=== PATIENT | male | born 1945 | race Caucasian/White ===

== ENCOUNTER 2022-03-28 15:19 | Outpatient (REF) | payer MEDICARE, SELFPAY ==
[2022-03-28 16:19] LABS: Alanine Aminotransferase 17 U/L (0-40); Albumin Level 4.2 g/dL (3.5-5.0); Alkaline Phosphatase 41 U/L (39-117); Anion Gap 16 (12-20); Aspartate Amino Transferase 25 U/L (5-37); Bilirubin Total 0.8 mg/dL (0.0-1.0); Blood Urea Nitrogen 21 mg/dL (9-16); Calcium 9.3 mg/dL (8.4-10.2); Carbon Dioxide 26 mmol/L (22-29); Chloride 106 mmol/L (96-108); Estimated Glomerular Filt Rate > 60; Glucose Random 94 mg/dL (60-115); Potassium 4.5 mmol/L (3.3-5.1); Sodium 143 mmol/L (135-145); Total Protein 6.8 g/dL (6.5-8.0)
[2022-03-28 16:41] LABS: T4 Thyroxine 8.8 ug/dL (4.5-12.0); Thyroid Stimulating Hormone 1.89 uIU/mL (0.32-4.0)
[2022-03-28 16:54] LABS: Folate 19.8 ng/mL (> or = 4.0); Vitamin B12 1174 pg/mL (200-900)
[2022-03-29 19:06] LABS: Homocysteine 9.5 umol/L (<11.4)
[2022-04-01 06:46] LABS: Methylmalonic Acid 164 nmol/L (87-318)
== END 2022-03-28 15:20 | disposition home or self-care (01) ==
LOC: HO.LAB 15:19
PROVIDERS: PCP Internal Medicine; Visit Provider Psychiatry & Neurology Neurology
DX: G30.9 Alzheimer's disease, unspecified (principal)
CPT/HCPCS: 36415; 80053; 82607; 82746; 83090; 83921; 84436; 84443

== ENCOUNTER 2022-04-25 14:08 | Outpatient (REF) | payer MEDICARE, SELFPAY ==
--- NOTE | ~2022-04-25 | CT_ITS ---
EXAMINATION: CT HEAD WITHOUT CONTRAST CLINICAL INFORMATION: Alzheimer's disease. COMPARISON: None TECHNIQUE: Contiguous axial imaging was performed from the skull base to vertex without intravenous administration of contrast. Additional 2-D coronal and sagittal reformatted images are generated on the CT workstation and uploaded to PACS. This CT examination was performed using dose optimization techniques as appropriate, variously including the following: *Automated exposure control *Adjustment of mA and/or kV according to patient size (this includes techniques or standardized protocols for targeted exams where dose is matched to indication/reason for exam; i.e. extremities or head) *Use of iterative reconstruction technique DLP: 961 mGy-cm FINDINGS: There is no intracranial hemorrhage, hematoma, or extra-axial fluid collection. There are generalized atrophic changes with prominence of the cortical sulci and fissures and cisterns. The ventricles are normal in size. There is no hydrocephalus, edema, or mass effect. The hernández-white matter differentiation is preserved. There is a lacunar infarct left periventricular white matter. Scattered bilateral basal ganglia hypodensities consistent with probable chronic small vessel ischemic changes. No edema. There is no visible acute territorial infarct or mass lesion. The calvarium appears intact. There is no pneumocephalus or orbital emphysema. The visualized sinuses and middle ears and mastoid air cells show no significant mucosal thickening. There are no air-fluid levels. CT/CT head/brain wo IV con IMPRESSION: -Generalized atrophic changes. -Lacunar infarct left periventricular white matter. Scattered chronic appearing bilateral basal ganglia small vessel ischemic changes. No edema or mass effect.
== END 2022-04-25 14:09 | disposition home or self-care (01) ==
LOC: HO.CT 14:08
PROVIDERS: PCP Internal Medicine; Visit Provider Psychiatry & Neurology Neurology
DX: G30.9 Alzheimer's disease, unspecified (principal)
CPT/HCPCS: 70450